=== PATIENT | male | born 1940 | race Caucasian/White ===

== ENCOUNTER 2018-08-19 15:48 | Emergency (ER) | payer OTHER ==
[~2018-08-19] VITALS: Ht 165.1 cm; Wt 79.8 kg
--- NOTE | ~2018-08-19 | EKG ---
[place], [place] ELECTROCARDIOGRAM REPORT NAME: DAVID GOSS UNIT #: [id number] ROOM: DOCTOR: EFREN DRAFT REPORT BIRTHDATE: [birth year] [facility] Test Date: 2018-08-19 Test Time: 16:19:13 Pat Name: DAVID GOSS Department: Room: Gender: [employer] M[employer]ainer: : [id number] Requested By: PETAR APONTE Order Number: [id number] Reading MD: Tahir Beltran MD Measurements Intervals [place] Rate: 65 P: 50 NE: 204 QRS: -25 QRSD: 100 T: 58 QT: 445 QTc: 463 Interpretive Statements Sinus rhythm Ventricular premature complex LVH with secondary repolarization abnormality No previous ECG available for comparison Electronically Signed On 08-23-2018 9:30:57 PST by Tahir Beltran MD CM:EKGRPT:ELECTROCARDIOGRAM REPORT 1619 0930 PETAR SCHWARTZ DRAFT REPORT PETAR APONTE MD
--- NOTE | ~2018-08-19 | EKG ---
[place], [place] ELECTROCARDIOGRAM REPORT NAME: DAVID GOSS UNIT #: [id number] ROOM: DOCTOR: EFREN DRAFT REPORT BIRTHDATE: [birth year] [facility] Test Date: 2018-08-19 Test Time: 16:19:13 Pat Name: DAVID GOSS Department: Patient ID: [id number] Room: Gender: Rn Ent: : [id number] Requested By: PETAR APONTE Order Number: [id number] Reading MD: Measurements Intervals [place] Rate: 65 P: 50 PA: 204 QRS: -25 QRSD: 100 T: 58 QT: 445 QTc: 463 Interpretive Statements Sinus rhythm Ventricular premature complex LVH with secondary repolarization abnormality Compared to ECG 07/28/2018 17:47:34 Ventricular premature complex(es) now present Left ventricular hypertrophy now present Early repolarization now present T-wave abnormality no longer present CM:EKGRPT:ELECTROCARDIOGRAM REPORT 1619 1321 PETAR SCHWARTZ DRAFT REPORT PETAR APONTE MD
[2018-08-19 16:24] LABS: BASO # 0.1 10*3/uL (0.0-0.1); BASO % 0.6 % (0.0-1.0); EOS # 0.4 10*3/uL (0.0-0.4); EOS % 3.4 % (1.0-4.0); HEMATOCRIT 43.4 % (42.0-52.0); HEMOGLOBIN 14.3 g/dl (14.0-18.0); LYMPH # 2.2 10*3/uL (1.3-4.4); LYMPH % 21.1 % (27.0-41.0); MEAN CELL VOLUME 93.5 fl (80.0-94.0); MEAN CORPUSCULAR HGB 30.8 pg (27.0-31.0); MEAN CORPUSCULAR HGB CONC 32.9 g/dl (33.0-37.0); MEAN PLATELET VOLUME 9.4 fl (9.6-12.3); MONO # 0.9 10*3/uL (0.1-1.0); MONO % 8.4 % (3.0-9.0); NEUT # 6.9 10*3/uL (2.3-7.9); NEUT % 65.9 % (47.0-73.0); PLATELET COUNT AUTOMATED 283 10*3/uL (130-400); RED BLOOD COUNT 4.64 10*6/uL (4.50-5.90); RED CELL DISTRI WIDTH 14.5 % (0-14.5); WHITE BLOOD COUNT 10.4 10*3/uL (4.8-10.8)
[2018-08-19 16:35] LABS: ACT PARTIAL THROMBO TIME 22.3 SECONDS (20.8-31.5)
[2018-08-19 16:39] LABS: ALBUMIN 3.6 gm/dl (3.1-4.5); ALKALINE PHOSPHATASE 107 U/L (45-117); BUN 31 mg/dl (7-24); CHLORIDE 108 mmol/L (98-107); CREATININE 1.17 mg/dL (0.70-1.30); POTASSIUM 4.2 mmol/L (3.5-5.1); SGOT/AST 38 IU/L (3-35); SGPT/ALT 57 U/L (12-78); SODIUM 142 mmol/L (136-145); TOTAL PROTEIN 7.9 gm/dL (6.4-8.2)
[2018-08-19 16:41] LABS: TROPONIN I < 0.015 ng/ml (<0.045)
[2018-08-19 18:57] LABS: BILIRUBIN NEGATIVE (NEGATIVE); BLOOD 2+ (NEGATIVE); CLARITY SL CLOUDY (CLEAR); COLOR YELLOW (YELLOW); GLUCOSE NEGATIVE (NEGATIVE); KETONE NEGATIVE (NEGATIVE); LEUKO ESTERASE NEGATIVE (NEGATIVE); NITRITE NEGATIVE (NEGATIVE); UROBILINOGEN 0.2 E.U./dl (0.2-1.0)
[2018-08-19 19:10] LABS: BACTERIA 2+; RBC 21-30 rbc/hpf (0-2); WBC TNTC wbc/hpf (0-5)
== END 2018-08-20 14:30 | disposition short-term general hospital (02) ==
LOC: ED 15:48
PROVIDERS: Emergency Medicine
DX: R53.1 Weakness (principal); I10 Essential (primary) hypertension; Z86.718 Personal history of other venous thrombosis and embolism; Z87.891 Personal history of nicotine dependence